=== PATIENT | female | born 1985 | race African-American/Black ===

== ENCOUNTER 2017-07-14 03:54 | Emergency (ER) | payer SELFPAY ==
[~2017-07-14] VITALS: Ht 162.6 cm; Wt 68.0 kg
[~2017-07-14 03:54] MED LIST: BACTRIM DS TAB1 EAC1 ORAL; IBUPROFEN600 MG ORAL; KEFLEX500 MG ORAL; NKM; NORCO 5-325 TA1 EACH ORAL; VALIUM5 MG ORAL
--- NOTE | 2017-07-14 04:15 | Emergency Room Report ---
History of Present Illness General Chief Complaint: Lower Extremity Injury Source: Patient Present Illness HPI Patient is a 32-year-old female presented after increased left foot and ankle pain after fall. Patient stated that she inverted her ankle while running. She stated she did not fill pop. She did increased pain after soaking her leg and hot water. Patient was initially ambulatory but was unable to ambulate subsequently. Injury occurred approximately 5 hours prior to arrival. She denies any numbness or tingling. Allergies: Coded Allergies: No Known Allergies (Unverified , 07/19/13) Patient History Last Menstrual Period: June Reviewed Nursing Documentation: PMH: Agreed, PSxH: Agreed Nursing Documentation-PMH Past Medical History: No Stated History Review of Systems All Other Systems: negative except mentioned in HPI Physical Exam Vital Signs Date Time Temp Pulse Resp B/P (MAP) Pulse Ox O2 Delivery O2 Flow Rate FiO2 07/14/17 04:00 98.0 80 18 141/71 95 Room Air 98.1 General Appearance: well appearing, no apparent distress, alert, GCS 15 Head: normocephalic, atraumatic ENT: hearing grossly normal, normal voice Neck: full range of motion, supple Respiratory: no respiratory distress, speaking full sentences Musculoskeletal: no calf tenderness, decreased range of mation Neurologic: normal inspection, alert, oriented x3, responsive, normal gait Psychiatric: mood/affect normal Skin: no rash, other - abrasion to left knee Medical Decision Making Diagnostic Impression: Primary Impression: Foot fracture, left ER Course Patient presented for ankle pain. Differential diagnosis included was not limited to sprain, fracture, dislocation, cellulitis, vascular insufficiency. X -ray imaging of the ankle was ordered X-ray imaging of the left ankle previous interpreted by me normal bony alignment without evident fracture. X-ray of the left foot 3 views interpreted by me showed an avulsion fracture of the lateral aspect of the metatarsals. Patient was placed in a posterior splint. She is advised follow-up with orthopedics in the next 2-3 days for recheck and possible casting. Last Vital Signs Date Time Temp Pulse Resp B/P (MAP) Pulse Ox O2 Delivery O2 Flow Rate FiO2 07/14/17 04:00 98.0 80 18 141/71 95 Room Air 98.1 Status: improved Disposition: HOME, SELF-CARE Condition: Stable Scripts Ibuprofen* (MOTRIN*) 600 Mg Tablet 600 MG ORAL Q8H Y for For Pain, #30 TAB 0 Refills Prov: Hawk Hall 07/14/17 Hydrocodone Bit/Acetaminophen 5-325* (NORCO 5-325 TABLET*) 1 Each Tablet 1 TAB ORAL Q4H Y for For Pain, #20 TAB Prov: Hawk Hall 07/14/17 Hawk Hall Jul 14, 2017 04:15
[2017-07-14] MEDS ORDERED: NORCO 5-325 TA1 EAC1 ORAL (04:44)
[2017-07-14] MEDS ORDERED: IBUPROFEN600 MG ORAL (04:44)
[2017-07-14 04:53] VITALS: BP 141/71
--- NOTE | 2017-07-14 09:37 | Diagnostic Imaging Report ---
Indication: Pain, twisted left ankle and foot earlier today Technique: 3 views of the left ankle Comparison: none Findings: No acute fractures. No dislocations. Joint spaces are preserved. Normal mineralization. No radiopaque foreign body. Impression: Negative
--- NOTE | 2017-07-14 09:44 | Diagnostic Imaging Report ---
Indication: Reason For Exam: PAIN Technique: 3 views left foot Comparison: none Findings: No acute fractures. No dislocations. The joint spaces are preserved Impression: Negative
== END 2017-07-14 05:08 | disposition home or self-care (01) ==
LOC: EMR 04:15
DX: S82.892A Other fracture of left lower leg, initial encounter for closed fracture (principal); S80.212A Abrasion, left knee, initial encounter; X50.1XXA Overexertion from prolonged static or awkward postures, initial encounter; Y93.02 Activity, running; Y92.9 Unspecified place or not applicable
CPT/HCPCS: 29515; 81025; 99284